=== PATIENT | male | born 1945 | race Caucasian/White ===

== ENCOUNTER → 2018-10-31 | Outpatient (CLI) | payer MEDICARE, BC ==
[~2018-10-31] MED LIST: ASPIR 8181 MG PO; ASPIRIN81 M2; AUGMENTIN 875-1 EACH PO; CENTRUM SILVER1 EAC4; CENTRUM SILVER1 EAC4 PO; CIPROFLOXACIN500 M1 PO; CRESTOR10 MG PO; DIAZEPAM 2MG TAB2 MG OR; LISINOPRIL5 MG PO; LOPRESSOR50 PO; MACRODANTIN50 MG PO; METFORMIN HCL500 MG PO; PROTONIX40 M1 PO; ZANTAC 150MG T150 M1 PO
[2018-10-31 07:52] LABS: POTASSIUM 3.5 mmol/L (3.5-5.1)
== END ==
LOC: M.LAB 00:31
PROVIDERS: Student in an Organized Health Care Education/Training Program
DX: E11.9 Type 2 diabetes mellitus without complications (principal); E87.6 Hypokalemia